=== PATIENT | male | born 1990 | race Caucasian/White ===

== ENCOUNTER 2016-06-28 21:55 | Emergency (ER) | payer OTHER ==
[~2016-06-28] VITALS: Ht 185.4 cm; Wt 141.8 kg
[~2016-06-28 21:55] MED LIST: AMOXICILLIN875 MG PO; DULCOLAX5 MG PO; FLONASE16 G1 BOTH NARES; MOTRIN600 MG PO; MOTRIN800 MG PO; NOHOMEMEDS; NORCO 7.5/321 TABLET PO; OMEPRAZOLE40 M1 PO; PHENERGAN-CODE120 ML PO; PREDNISONE10 MG PO; VALIUM5 MG PO; ZOFRAN ODT4 MG PO
[2016-06-28] MEDS ORDERED: NAPROXEN500 MG PO (23:01)
[2016-06-28 23:13] VITALS: BP 147/88
== END 2016-06-28 23:14 | disposition home or self-care (01) ==
LOC: EME 21:55
DX: S80.02XA Contusion of left knee, initial encounter (principal); X58.XXXA Exposure to other specified factors, initial encounter
CPT/HCPCS: 73564; 99281; 99284

== ENCOUNTER 2016-10-15 12:45 | Emergency (ER) | payer OTHER ==
[~2016-10-15] VITALS: Ht 188 cm; Wt 141.2 kg
[~2016-10-15 12:45] MED LIST changes: +NAPROXEN500 MG PO
[2016-10-15 14:00] LABS: EOSINOPHIL (%) 0.8 % (0-5); EOSINOPHIL COUNT 0.1 K/uL (0-0.3); IMMATURE GRANULOCYTE (%) 0.5 % (0.0-0.7); IMMATURE GRANULOCYTE COUNT 0.1 K/uL; LYMPHOCYTE COUNT 1.1 K/uL (1.0-2.8); MCH 29.2 PG (29.0-34.0); MCHC 32.9 G/DL (30.0-36.0); MCV 88.8 FL (86-99); MEAN PLAT.VOLUME 9.5 uM^3 (9.0-12.4); MONOCYTE (%) 5.5 % (3-12); MONOCYTE COUNT 0.7 K/uL (0-0.8); NEUTROPHIL (%) 83.5 % (45-76); PLATELET COUNT 247 K/uL (156-360); RBC DIS.WIDTH-CV 12.1 % (11.8-14.6); RBC DIS.WIDTH-SD 39.5 % (39-53); RED BLOOD COUNT 4.73 M/uL (4.00-5.50)
[2016-10-15 14:06] LABS: CHLORIDE 108 mEq/L (99-109); POTASSIUM 3.8 mEq/L (3.7-5.4); SODIUM 140 mEq/L (136-147)
[2016-10-15 14:08] LABS: GLUCOSE 94 mg/dL (70-99)
[2016-10-15 14:10] LABS: ANION GAP 11 MEQ/L (2-14); TOTAL BILIRUBIN 1.4 mg/dL (0.0-1.0)
[2016-10-15 14:12] LABS: ALKALINE PHOSPHATASE 56 IU/L (3-129); GFR ESTIMATE (CALCULATED) > 59 mL/min/
[2016-10-15 14:13] LABS: UREA NITROGEN (BUN) 12 mg/dL (9-23)
[2016-10-15 14:15] LABS: CREATINE KINASE 591 IU/L (1-294); TOTAL CK 591 IU/L (1-294)
[2016-10-15 14:48] LABS: ADD MIUA? YES; BILIRUBIN NEGATIVE; BLOOD SMALL; COLOR YELLOW ((YELLOW)); GLUCOSE (STRIP) NEGATIVE; KETONES 5; LEUKOCYTES NEGATIVE; NITRITE NEGATIVE; PROTEIN (STRIP) 30; SPECIFIC GRAVITY 1.018 (1.000-1.030); UROBILINOGEN 0.2 MG/DL (0.2-1.0)
[2016-10-15 14:50] LABS: BACTERIA NONE SEEN /HPF; EPITHELIAL CELLS NONE SEEN /HPF; MUCUS TRACE /LPF; RED BLOOD CELLS 0-5 /HPF (0-5); UCUL ADDED? NO; WHITE BLOOD CELLS 0-5 /HPF (0-5)
[2016-10-15 15:07] LABS: AMPHETAMINE NEGATIVE (500 ng/mL); BARBITURATES NEGATIVE (200 ng/mL); BENZODIAZEPINES NEGATIVE (150 ng/mL); COCAINE NEGATIVE (150 ng/mL); INTERNAL CONTROLS VALID? YES; METHADONE NEGATIVE (200 ng/mL); METHAMPHETAMINE NEGATIVE (500 ng/mL); OPIATES (MORPHINE) NEGATIVE (100 ng/mL); OXYCODONE NEGATIVE (100 ng/mL); PHENCYCLIDINE NEGATIVE (25 ng/mL); PROPOXYPHENE NEGATIVE (300 ng/mL); THC CANNABINOIDS NEGATIVE (50 ng/mL); TRICYCLIC ANTIDEPRESSANTS NEGATIVE (300 ng/mL)
[2016-10-15 18:16] VITALS: BP 108/72
== END 2016-10-15 18:18 | disposition home or self-care (01) ==
LOC: EME 12:45
PROVIDERS: Emergency Medicine
DX: R41.0 Disorientation, unspecified (principal); K21.9 Gastro-esophageal reflux disease without esophagitis
CPT/HCPCS: 70450; 71010; 80053; 81003; 82550; 82553; 85025; 93005; 99281; 99285; J2405; J7030

== ENCOUNTER 2016-10-21 17:07 | Observation (INO) | payer OTHER ==
[~2016-10-21] VITALS: Ht 185.4 cm; Wt 145.8 kg
[2016-10-21] MEDS ORDERED: ALFUZOSIN HCL10 MG PO (18:42)
[2016-10-21 19:53] LABS: HEMATOCRIT 45.8 % (38.0-50.0); MCH 29.4 PG (29.0-34.0); MCV 89.1 FL (86-99); MEAN PLAT.VOLUME 9.7 uM^3 (9.0-12.4); PLATELET COUNT 259 K/uL (156-360); RBC DIS.WIDTH-CV 12.1 % (11.8-14.6); RBC DIS.WIDTH-SD 39.7 % (39-53); RED BLOOD COUNT 5.14 M/uL (4.00-5.50); WHITE BLOOD COUNT 8.5 K/uL (4.1-10.2)
[2016-10-21] MEDS ORDERED: UROXATRAL10 MG PO (20:05)
[2016-10-21] MEDS ORDERED: OMEPRAZOLE20 M2 PO (20:06)
[2016-10-21 20:10] LABS: CHLORIDE 103 mEq/L (99-109); POTASSIUM 4.2 mEq/L (3.7-5.4); SODIUM 136 mEq/L (136-147)
[2016-10-21 20:12] LABS: GLUCOSE 100 mg/dL (70-99)
[2016-10-21 20:13] LABS: ANION GAP 7 MEQ/L (2-14)
[2016-10-21 20:16] LABS: GFR ESTIMATE (CALCULATED) > 59 mL/min/
[2016-10-21 20:17] LABS: UREA NITROGEN (BUN) 16 mg/dL (9-23)
[2016-10-21 21:51] LABS: Estimated Average Glucose 91 mg/dL (70-123); HEMOGLOBIN A1c (GLYCOHEMOGLOB) 4.8 % HGB (Below 5.7)
[2016-10-21 22:10] LABS: HDL CHOLESTEROL 30 MG/DL (Desirable>=40); LDL CHOLESTEROL 83 mg/dL (Desirable<100); NON-HDL CHOLESTEROL 117 mg/dL (Desirable<160); TOTAL CHOLESTEROL 147 mg/dL (Desirable<200); TRIGLYCERIDES 168 MG/DL (Normal: <150)
[2016-10-21 22:32] VITALS: BP 140/85
[2016-10-21 23:53] VITALS: BP 127/69
[2016-10-22 04:00] VITALS: BP 117/64
[2016-10-22 08:13] VITALS: BP 146/80
[2016-10-22] MEDS ORDERED: ASPIR-LOW81 MG PO (11:22)
[2016-10-22] MEDS ORDERED: PRAVASTATIN SOD40 MG PO (11:22)
[2016-10-22 11:40] VITALS: BP 141/73
== END 2016-10-22 12:59 | disposition home or self-care (01) ==
LOC: EME 17:07 → EDOF 21:16 → 5SOUTH 21:16
PROVIDERS: Hospitalist; Physician Assistant
DX: G45.9 Transient cerebral ischemic attack, unspecified (principal); R47.81 Slurred speech; R29.810 Facial weakness; R20.0 Anesthesia of skin; K21.9 Gastro-esophageal reflux disease without esophagitis; F31.9 Bipolar disorder, unspecified; M19.90 Unspecified osteoarthritis, unspecified site; N40.0 Benign prostatic hyperplasia without lower urinary tract symptoms; E66.01 Morbid (severe) obesity due to excess calories; Z68.41 Body mass index [BMI] 40.0-44.9, adult
CPT/HCPCS: 70450; 70551; 80048; 80061; 83036; 85027; 86038; 92523 GN; 93005; 93306; 93880; 99281; 99285; G0378; G9162 GN CH; G9163 GN CH; G9164 GN CH

== ENCOUNTER 2017-01-24 21:52 | Emergency (ER) | payer OTHER ==
[~2017-01-24] VITALS: Ht 185.4 cm; Wt 145.7 kg
[~2017-01-24 21:52] MED LIST changes: +ALFUZOSIN HCL10 MG PO; +ASPIR-LOW81 MG PO; +OMEPRAZOLE20 M2 PO; +PRAVASTATIN SOD40 MG PO; +UROXATRAL10 MG PO
[2017-01-24 22:51] LABS: HEMATOCRIT 41.5 % (38.0-50.0); MCH 29.2 PG (29.0-34.0); MCV 88.5 FL (86-99); PLATELET COUNT 239 K/uL (156-360); RBC DIS.WIDTH-CV 12.1 % (11.8-14.6); RBC DIS.WIDTH-SD 39.5 % (39-53); RED BLOOD COUNT 4.69 M/uL (4.00-5.50); WHITE BLOOD COUNT 8.5 K/uL (4.1-10.2)
[2017-01-24 23:02] LABS: CHLORIDE 107 mEq/L (99-109); POTASSIUM 3.8 mEq/L (3.7-5.4); SODIUM 141 mEq/L (136-147)
[2017-01-24 23:04] LABS: GLUCOSE 96 mg/dL (70-99)
[2017-01-24 23:05] LABS: ANION GAP 13 MEQ/L (2-14)
[2017-01-24 23:06] LABS: TOTAL BILIRUBIN 0.8 mg/dL (0.0-1.0)
[2017-01-24 23:07] LABS: ALKALINE PHOSPHATASE 59 IU/L (3-129)
[2017-01-24 23:08] LABS: GFR ESTIMATE (CALCULATED) > 59 mL/min/
[2017-01-24 23:09] LABS: UREA NITROGEN (BUN) 13 mg/dL (9-23)
[2017-01-24 23:22] LABS: ADD MIUA? YES; BILIRUBIN NEGATIVE; BLOOD SMALL; COLOR YELLOW ((YELLOW)); GLUCOSE (STRIP) NEGATIVE; KETONES NEGATIVE; LEUKOCYTES NEGATIVE; NITRITE NEGATIVE; PROTEIN (STRIP) 30; SPECIFIC GRAVITY 1.034 (1.000-1.030); UROBILINOGEN 0.2 MG/DL (0.2-1.0)
[2017-01-24] MEDS ORDERED: FLOMAX0.4 MG PO (23:23)
[2017-01-24 23:57] LABS: BACTERIA NONE SEEN /HPF; EPITHELIAL CELLS NONE SEEN /HPF; MUCUS TRACE /LPF; RED BLOOD CELLS 0-5 /HPF (0-5); UCUL ADDED? NO; WHITE BLOOD CELLS 0-5 /HPF (0-5)
[2017-01-25 01:22] VITALS: BP 144/82
== END 2017-01-25 01:23 | disposition home or self-care (01) ==
LOC: EME 21:52
DX: R10.32 Left lower quadrant pain (principal); K21.9 Gastro-esophageal reflux disease without esophagitis; N40.0 Benign prostatic hyperplasia without lower urinary tract symptoms
CPT/HCPCS: 74177; 80053; 81003; 85027; 99281; 99285